=== PATIENT | female | born 1975 | race Caucasian/White ===

== ENCOUNTER → 2017-10-24 14:51 | Outpatient (CLI) | payer MEDICAID, SELFPAY ==
[2017-10-24 16:28] LABS: Estradiol 80.2 pg/mL
== END ==
PROVIDERS: Visit Provider Obstetrics & Gynecology
DX: N92.1 Excessive and frequent menstruation with irregular cycle (principal)
CPT/HCPCS: 36415; 82670

== ENCOUNTER → 2018-09-10 12:51 | Outpatient (CLI) | payer MEDICAID, SELFPAY ==
[2018-09-10 12:55] VITALS: BP 126/86; PULSE 134; RESP 16; TEMP 36.6; O2SAT 100
== END ==
PROVIDERS: Family Provider Family Medicine; PCP Family Medicine; Referring Provider Obstetrics & Gynecology; Visit Provider Obstetrics & Gynecology
DX: D50.0 Iron deficiency anemia secondary to blood loss (chronic) (principal); K90.9 Intestinal malabsorption, unspecified
CPT/HCPCS: 96365; 96366; J1756; J7050; A4216

== ENCOUNTER → 2018-09-24 | Outpatient (CLI) | payer MEDICAID, SELFPAY ==
[2018-09-24 13:43] VITALS: BP 116/75; PULSE 105; RESP 16; O2SAT 100
== END | disposition home or self-care (01) ==
LOC: MEDOUTP 13:30
PROVIDERS: Family Provider Family Medicine; PCP Family Medicine; Referring Provider Obstetrics & Gynecology; Visit Provider Obstetrics & Gynecology
DX: K90.9 Intestinal malabsorption, unspecified (principal); D50.9 Iron deficiency anemia, unspecified
CPT/HCPCS: 96365; 96366; 96374; J1756; J7050; A4216

== ENCOUNTER → 2018-10-16 14:05 | Outpatient (CLI) | payer MEDICAID, SELFPAY ==
[2018-10-16 16:15] LABS: Hematocrit 34.9 % (37-47); Hemoglobin 10.9 g/dL (12.0-15.0); Mean Corp Hgb Conc 31.2 g/dL (32-36); Mean Corpuscular Hgb 26.4 pg (27.0-32.0); Mean Corpuscular Volume 84.5 fL (81-99); Mean Platelet Vol. 9.2 fl (6.2-12.0); POSITIVE MORPHOLOGY YES; Platelet Count 223 K/mm3 (150-450); RBC Distribution Width CV 22.6 % (11.6-14.6); RBC Distribution Width SD 68.7 fl (35.1-43.9); Red Blood Count 4.13 M/mm3 (4.2-5.4); White Blood Count 4.7 K/mm3 (4.4-11.0)
[2018-10-16 16:23] LABS: Scan Indicated on CBC? Y/N YES- FLAGS NOTED
[2018-10-16 17:01] LABS: Differential Comment SCANNED
== END ==
PROVIDERS: Visit Provider Obstetrics & Gynecology
DX: D64.9 Anemia, unspecified (principal)
CPT/HCPCS: 36415; 85027

== ENCOUNTER → 2018-11-11 14:47 | Outpatient (CLI) | payer MEDICAID, SELFPAY ==
[2018-11-15 11:22] LABS: HPV HC, High Risk Negative (Negative)
== END ==
PROVIDERS: Visit Provider Obstetrics & Gynecology
DX: Z12.4 Encounter for screening for malignant neoplasm of cervix (principal)
CPT/HCPCS: 87624

== ENCOUNTER → 2019-01-16 14:02 | Outpatient (CLI) | payer MEDICAID, SELFPAY ==
[2019-01-16 14:25] VITALS: BP 114/78; PULSE 97; RESP 16; TEMP 36.6; BMI 21.2
[2019-01-16 15:39] VITALS: BP 117/75; PULSE 103; RESP 14
== END ==
PROVIDERS: Family Provider Family Medicine; PCP Family Medicine; Referring Provider Obstetrics & Gynecology; Visit Provider Obstetrics & Gynecology
DX: D50.9 Iron deficiency anemia, unspecified (principal); K90.9 Intestinal malabsorption, unspecified; N92.0 Excessive and frequent menstruation with regular cycle
CPT/HCPCS: 96365; J7050; A4216; Q0138

== ENCOUNTER → 2019-02-19 13:24 | Outpatient (CLI) | payer MEDICAID, SELFPAY ==
[2019-01-16 14:25] VITALS: BMI 21.2
[2019-02-19 14:10] VITALS: BP 125/75; PULSE 107; RESP 16; TEMP 36.6; O2SAT 98; BMI 21.2
[2019-02-19 15:23] VITALS: BP 125/71; PULSE 107; RESP 16; TEMP 36.7; O2SAT 98
== END ==
PROVIDERS: Family Provider Family Medicine; PCP Family Medicine; Referring Provider Obstetrics & Gynecology; Visit Provider Obstetrics & Gynecology
DX: D50.9 Iron deficiency anemia, unspecified (principal); N92.0 Excessive and frequent menstruation with regular cycle; K90.9 Intestinal malabsorption, unspecified
CPT/HCPCS: 96365; J7050; A4216; Q0138

== ENCOUNTER → 2019-03-31 14:00 | Outpatient (CLI) | payer MEDICAID, SELFPAY ==
[2019-02-19 14:10] VITALS: BMI 21.2
[2019-03-31 15:44] LABS: Hematocrit 41.3 % (37-47); Hemoglobin 13.8 g/dL (12.0-15.0); Mean Corp Hgb Conc 33.4 g/dL (32-36); Mean Corpuscular Hgb 31.4 pg (27.0-32.0); Mean Corpuscular Volume 93.9 fL (81-99); Mean Platelet Vol. 9.7 fl (6.2-12.0); Platelet Count 178 K/mm3 (150-450); RBC Distribution Width SD 48.2 fl (35.1-43.9); White Blood Count 4.4 K/mm3 (4.4-11.0)
== END ==
PROVIDERS: PCP Family Medicine; Referring Provider Obstetrics & Gynecology; Visit Provider Obstetrics & Gynecology
DX: D50.0 Iron deficiency anemia secondary to blood loss (chronic) (principal); N92.1 Excessive and frequent menstruation with irregular cycle; N39.0 Urinary tract infection, site not specified
CPT/HCPCS: 36415; 85027; 87086; 87088; 87186

== ENCOUNTER → 2020-03-01 10:19 | Outpatient (CLI) | payer MEDICAID, SELFPAY ==
--- NOTE | 2020-03-01 | EMB_PTH ---
PATIENT: OLYA OSORIO LOC: [facility] U#:[id number] AGE/SX: 49/F ROOM: RE03/01/[address]: Dr. Joceline Ramos MD : 1975 BED: DIS: SPEC #: [id number] RECD: 03/01/20 12:37 STATUS: MINDA REAlisa #: [id number] SILVIANO: 03/01/20 00:[address]: Joceline Estevez DEPT: SURGICAL PATHOLOGY RECD BY: Mitesh Whitehead ENTERED: 03/01/20 12:37 SP TYPE: ENDOM BX/C DINA DR: Dr. Penny Chong MD Tissues: Endometrium, NOS Procedures: Surgery Specimen Level IV HEADER OPERATION: Endometrial biopsy PRE-OP DIAGNOSIS: N92.0 TISSUE SUBMITTED: Endometrial biopsy MICROSCOPIC DIAGNOSIS Endometrium, biopsy: Simple cystic hyperplasia without atypia. AM:fiordaliza 03/02/2020 COMMENT Case has been reviewed in consultation with Dr. Gray who concurs with the above diagnosis. IDC:SJ MICROSCOPIC DESCRIPTION Slides are reviewed. GROSS DESCRIPTION Received in fixative is one container labeled with the patient's name and designated EM biopsy. The specimen consists of multiple fragments of hemorrhagic soft tissue that in aggregate measure 2 x 1.5 x 0.1 cm. The specimen is totally submitted in one cassette. / STANLEY:fiordaliza 03/01/20 TC:5 CPT: 45138
[2020-03-01 10:19] VITALS: BMI 21.2
[2020-03-01 10:42] LABS: Hematocrit 37.2 % (37-47); Hemoglobin 11.6 g/dL (12.0-15.0); Mean Corp Hgb Conc 31.2 g/dL (32-36); Mean Corpuscular Hgb 25.4 pg (27.0-32.0); Mean Corpuscular Volume 81.6 fL (81-99); Mean Platelet Vol. 8.5 fl (6.2-12.0); Platelet Count 275 K/mm3 (150-450); RBC Distribution Width CV 18.4 % (11.6-14.6); RBC Distribution Width SD 54.1 fl (35.1-43.9); Red Blood Count 4.56 M/mm3 (4.2-5.4); White Blood Count 4.5 K/mm3 (4.4-11.0)
[2020-03-01 11:28] LABS: Ferritin 21 ng/mL (8-252); Iron 67 ug/dL (50-170); Iron Binding Capacity,Total 572 ug/dL (250-450); PERCENT IRON SATURATION 11.7 % (15.0-55.0); T4 Free Direct 1.04 ng/dL (0.76-1.46); Thyroid Stim Hormone (TSH) 0.71 uIU/mL (0.358-3.74)
== END ==
PROVIDERS: PCP Family Medicine; Visit Provider Obstetrics & Gynecology
DX: N92.1 Excessive and frequent menstruation with irregular cycle (principal); E03.9 Hypothyroidism, unspecified
CPT/HCPCS: 36415; 82728; 83540; 83550; 84439; 84443; 84481; 85027; 88305

== ENCOUNTER → 2020-06-28 17:02 | Outpatient (CLI) | payer MEDICAID, SELFPAY ==
[2020-03-01 10:19] VITALS: BMI 21.2
--- NOTE | 2020-06-28 15:30 | EMB_PTH ---
PATIENT: OLYA OSORIO LOC: [facility] U#:[id number] AGE/SX: 49/F ROOM: RE06/28/[address]: Dr. Joceline Ramos MD : 1975 BED: DIS: SPEC #: [id number] RECD: 06/28/20 17:25 STATUS: MINDA LAMBERTO #: [id number] SILVIANO: 06/28/20 15:[address]: Joceline Estevez DEPT: SURGICAL PATHOLOGY RECD BY: Sil Dasilva ENTERED: 06/29/20 11:36 SP TYPE: ENDOM BX/C DINA DR: Dr. Penny Chong MD Tissues: Endometrium, NOS Procedures: Surgery Specimen Level IV HEADER OPERATION: Endometrial biopsy PRE-OP DIAGNOSIS: Endometrial hyperplasia with atypia; irregular bleeding TISSUE SUBMITTED: Endometrial biopsy MICROSCOPIC DIAGNOSIS Endometrial biopsy: Secretory endometrium. Negative for hyperplasia. See comment. STANLEY:fiordaliza 06/30/2020 COMMENT Clinical correlation and appropriate follow up are necessary. Please make reference to previous specimen ([id number]) endometrium, biopsy with diagnosis of ?simple cystic hyperplasia without atypia.? MICROSCOPIC DESCRIPTION Slides are reviewed. GROSS DESCRIPTION Received in fixative is one container labeled with the patient's name and designated EM biopsy. The specimen consists of multiple fragments of wu hemorrhagic soft tissue that in aggregate measure 2 x 0.5 x 0.1 cm. The specimen is totally submitted in one cassette. / SJ:rg 06/29/20 TC:4 CPT: 59611
== END ==
PROVIDERS: PCP Family Medicine; Visit Provider Obstetrics & Gynecology
DX: N92.6 Irregular menstruation, unspecified (principal)
CPT/HCPCS: 88305

== ENCOUNTER 2020-08-04 17:27 | Observation (INO) | payer MEDICAID, SELFPAY ==
[2020-03-01 10:19] VITALS: BMI 21.2
[2020-07-28 17:18] LABS: Hemoglobin 11.5 g/dL (12.0-15.0); Mean Corp Hgb Conc 31.1 g/dL (32-36); Mean Corpuscular Hgb 27.6 pg (27.0-32.0); Mean Corpuscular Volume 88.7 fL (81-99); Mean Platelet Vol. 9.6 fl (6.2-12.0); Platelet Count 215 K/mm3 (150-450); RBC Distribution Width CV 17.8 % (11.6-14.6); Red Blood Count 4.17 M/mm3 (4.2-5.4); White Blood Count 3.9 K/mm3 (4.4-11.0)
[2020-07-28 17:33] LABS: Partial Thromboplast Time 27.5 Seconds (24.1-36.2)
[2020-07-28 18:23] LABS: AST(SGOT) 15 U/L (15-37); Alanine Aminotransfer ALT/SGPT 19 U/L (13-56); Albumin, Serum 3.9 g/dL (3.2-5.0); Alkaline Phosphatase 50 U/L (45-117); Bilirubin, Direct 0.13 mg/dL (0.00-0.30); Globulin 3.2 g/dL (2.2-4.2); Magnesium 2.2 mg/dL (1.6-2.6); Protein, Total 7.1 g/dL (6.4-8.2); T4 Free Direct 0.84 ng/dL (0.76-1.46); Thyroid Stim Hormone (TSH) 0.76 uIU/mL (0.358-3.74)
[2020-08-04] VITALS (21 sets, daily range): BP systolic 90–133; BP diastolic 50–77; PULSE 71–168; RESP 14–18; TEMP 36.1–37.2; O2SAT 96–100; BMI 22.8; BMI 21.9
[2020-08-04] MEDS: Ondansetron 4 MG/2 ML Vial IV (07:00)
[2020-08-04] MEDS: Lactated Ringers 1,000 ML 40 ML IV ×4 (07:00→21:43)
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
[2020-08-04 09:20] LABS: Internal QC Validated? YES +Cl - CLEAR BKGD; Pregnancy, Urine Negative Negative
[2020-08-04] MEDS: Gabapentin 600 MG Tablet PO (09:45)
[2020-08-04] MEDS: Acetaminophen 500 MG Tablet 1000 MG PO ×3 (09:46→23:49)
--- NOTE | 2020-08-04 11:00 | HYST_PTH ---
PATIENT: OLYA OSORIO LOC: [facility] U#:[id number] AGE/SX: 45/F ROOM: SC313 RE08/04/[address]: Dr. Joceline Ramos MD : 1975 BED: 1 DIS: 08/05/2020 SPEC #: [id number] RECD: 08/05/20 08:05 STATUS: MINDA LAMBERTO #: [id number] SILVIANO: 08/04/20 11:[address]: Joceline Estevez DEPT: SURGICAL PATHOLOGY RECD BY: Sil Dasilva ENTERED: 08/05/20 08:25 SP TYPE: HYSTERECT OTHR DR: No Primary Care Phys Tissues: Uterus, NOS Procedures: Surgery Specimen Level V HEADER OPERATION: ERAS, hysterectomy, LAVH, salpingectomy PRE-OP DIAGNOSIS: Benign endometrial hyperplasia, excessive and frequent menstruation with irregular cycle and iron deficiency TISSUE SUBMITTED: Uterus, cervix and bilateral fallopian tubes MICROSCOPIC DIAGNOSIS Uterus, cervix and bilateral fallopian tubes, vaginal hysterectomy and bilateral salpingectomy: Cervix ? chronic cystic cervicitis and squamous metaplasia. Endometrium ? early secretory endometrium. Myometrium ? intramural and subserosal leiomyomas. - Focal adenomyosis. Bilateral fallopian tubes - no pathologic diagnosis. Right paratubal cyst. SJ:rg 08/08/2020 MICROSCOPIC DESCRIPTION Slides are reviewed. GROSS DESCRIPTION Received in fixative is one container labeled with the patient's name and designated uterus, cervix and bilateral fallopian tubes. The specimen consists of a hysterectomy specimen consisting of uterus with cervix and attached bilateral fallopian tubes. The uterus with cervix weighs 138 gm and measures 10 x 6 x 5 cm. The serosal surface is wu, glistening. A subserosal nodule is also noted at the level of internal os anteriorly. The ectocervical mucosa is unremarkable. The external os is circular in contour. The endocervical canal measures 3.5 cm in length and the endocervical mucosa is wu, glistening and unremarkable. The triangular endometrial cavity measures 4 cm in length and 2.5 cm in width. The endometrial cavity shows a well-positioned, wu-white intrauterine device. The vertical arm of the IUD measures 3 cm in length and the horizontal measures 3 cm in length. A two-prong suture is also noted attached to the IUD and measures 5 cm in length. The endometrium does not show any mass lesion and measures 0.2 cm in thickness. Sections of the uterine wall reveal two nodular masses, one intramural measuring 2 cm in greatest dimension and one subserosal at the level of internal os measuring 1.5 cm in greatest dimension. Sections of these masses reveal wu whorled cut surfaces without areas of hemorrhage, necrosis or cystic degeneration. The uterine wall measures up to 2.5 cm in thickness. The right fallopian tube measures 8 cm in length and 0.6 cm in diameter. The fimbrial end is identified. Sections reveal unremarkable cut surfaces. A paratubal cyst is noted measuring 2 cm in greatest dimension. It is filled with clear fluid. The left fallopian tube is similar to right and measures 7 cm in length and up to 0.9 cm in diameter. Paint Preparer sections are submitted in 11 cassettes as follows: 1?- anterior cervix, 2 - posterior cervix, 3-5 - anterior uterine wall, 6-8 - posterior uterine wall, 9 - nodular masses (almost the entire endometrium is submitted), 10 - right fallopian tube and paratubal cyst, 11??left fallopian tube. / SJ:fiordaliza 08/05/20 TC:1 CPT: 09982
[2020-08-04 12:01] LABS: Bedside Glucose 142 mg/dL (70-110)
[2020-08-04] MEDS: Cefazolin 2 GM in 0.9% Normal Saline 100 ML IV (12:24)
[2020-08-04] MEDS: Vasopressin 20 UNITS/ML Vial (12:47)
[2020-08-04] MEDS: Bupivacaine Mpf 0.5% 30 ML VIAL (15:18)
--- NOTE | 2020-08-04 16:01 | OP.PCM_ITS ---
Problems Associated Problem List Diagnoses (1) Endometrial hyperplasia without atypia: Report of Operation Date of Procedure: 08/04/20 Pre-Operative Diagnosis: 1. Endometrial hyperplasia 2. Menorrhagia 3. Iron deficiency Post-Operative Diagnosis: 1. Endometrial hyperplasia 2. Menorrhagia 3. Iron deficiency Surgery/Procedure Performed:: Laparoscopic assisted vaginal hysterectomy Description of Surgical Findings:: 10 to 12 weeks size uterus, normal-appearing tubes, ovaries normal-appearing with right hemorrhagic ovarian cyst, appendix normal Surgeon: Joceline Estevez neurosurgery research director: None (Palak Munson, Todd Kruse MD, Pamela Ibarra) Type of Anesthesia: General and Local Anesthesiologist: John Elizalde Specimen's removed: uterus, cervix, bilateral tubes Drains: UO 250 Estimated Blood Loss (mL): 650 Fluids Replaced: 1700 ml Description of Procedure: Indications: 45-year-old with history of menorrhagia and indwelling ParaGard IUD. She underwent endometrial biopsy demonstrating endometrial hyperplasia without atypia. She is counseled regarding medical versus surgical management options and opted to proceed with hysterectomy for definitive management. Procedural risks, benefits, indications were reviewed and patient desired to proceed. Procedure: The patient was brought to the operating room and sinus performed. She is placed in the dorsal supine position and induced under general anesthesia and intubated. Her arms were tucked at her sides. She is placed into dorsal lithotomy in the abdomen and perineum were prepped and draped in sterile fashion. She is placed into high lithotomy. A Jeffery catheter was placed into the bladder. A weighted speculum was placed vaginally and the cervix grasped at the anterior cervical lip using a single-tooth tenaculum. 20 cc of dilute vasopressin (20 units 100 mL normal saline ) was injected into the cervix. A ZGridCure uterine manipulator was placed and secured. The tenaculum was removed from the cervix and the speculum removed from the vagina. The patient was placed into low lithotomy and attention turned to the abdomen. Half percent bupivacaine was injected inferior to the umbilicus. Incision was made here with the scalpel and Veress needle introduced into the abdominal cavity with successful hanging drop test and no aspirate. The abdomen was i nsufflated to 15 mmHg. Veress needle was removed and a 5 mm port placed under laparoscopic guidance however the anterior abdominal peritoneum was not yet breached and insufflation of the subcutaneous tissue occurred. The 5 mm port was again introduced at the site and abdominal entry was confirmed using laparoscopy. A left lower quadrant tap block was placed under laparoscopic guidance using half percent bupivacaine. An incision was made at the site and a 5 mm port introduced. In similar fashion a right lower quadrant tap block was placed incision made and 5 mm port placed. Patient was placed into Trendelenburg. The abdomen and pelvis were inspected. Attention was turned to the left adnexa. The left distal tubal fimbria was identified. The left mesosalpinx was electrocoagulated and cut to the level of the uterine cornua to perform salpingectomy. The left round ligament was clamped, electrocoagulated and cut. The anterior broad ligament was opened with creation of bladder flap. The uterine ovarian ligament was clamped, electrocoagulated and cut. The posterior broad ligament was opened and uterine vessels were skeletonized. The ureter was visualized deep to the uterine vessels. The left uterine vessels were electrocoagulated and cut with good hemostasis. Attention was turned to the right adnexa and in similar fashion right salpingectomy was performed. The right round ligament was grasped, electrocoagulated and cut. An opening of the anterior broad ligament arteriolar bleeding was encountered and controlled using electrocoagulation. The bladder flap was completed. The right utero-ovarian ligament was clamped coagulated and transected. The posterior right broad ligament was incised and the uterine vessels were skeletonized. The right ureter was observed. The uterine vessels were electrocoagulated and cut. The abdomen was desufflated and attention was turned to the perineum. The patient was placed into high lithotomy and a weighted speculum is placed vaginally. A circumferential incision was made around the cervical vaginal junction. The posterior cul-de-sac was entered sharply and the [employer] Bard space speculum was placed within the posterior cul-de-sac. Anteriorly the vesicouterine membrane was dissected and a curved [place] was placed to retract the bladder. The right then left uterosacral ligaments were Francia clamped, cut and suture ligated. 0 Vicryl was used for all sutures during this procedure. The right cardinal ligament was Francia clamped, suture ligated and cut. The left cardinal ligament was Francia clamped, suture ligated and cut however there was arterial bleeding at the site with brisk bleeding. The source of bleeding was unable to be identified and the pedicle was widely clamped with improvement of bleeding, however suture ligation of the site did not resolve the bleeding. The remaining peritoneum at the right was grasped, cut and tied. The remaining left apical peritoneum was grasped, cut and tied with delivery of the uterus. Visualization improved and there appeared to be 2 vessels bleeding from the cardinal ligament pedicle at the right. A right angle clamp was placed proximal to the bleeds and the vessels were suture-ligated. Hemostasis was attained. A modified Hardy culdoplasty was performed incorporating the uterosacral ligament pedicles with with the anterior and posterior peritoneum. The vaginal cuff was reapproximated using serial [id number] sutures. The patient was placed into low lithotomy and attention turned to the abdomen. The abdomen was insufflated and the pelvis inspected laparoscopically. Shen was placed along the raw edge of peritoneum just lateral to the cuff. The procedure was complete. Abdomen was desufflated and trochars removed. The ELECTRICIAN FRONT closed the skin using 4-0 Monocryl under my supervision. Steri-Strips and OpSite dressings were placed over each of the sites. The Jeffery catheter was removed. Patient was placed into dorsal supine position, awakened, extubated and transferred to the recovery room without complication. Sponge and needle counts were correct x2. Admit VTE Documentation VTE Present on Admission: No VTE Mechan Device Prophylaxis: SCD's VTE Pharm Prophylaxis ordered?: No
[2020-08-04] MEDS: HYDROmorphone 0.5 MG/0.5 ML SYRINGE IV (20:05)
[2020-08-04] MEDS: Docusate Sodium 100 MG Capsule PO (20:05)
[2020-08-04] MEDS: Ondansetron ODT 4 MG Tablet PO (21:58)
[2020-08-04] MEDS: 0.9% Saline Lock 10 ML Syringe IV (22:37)
--- NOTE | 2020-08-04 22:38 | PN_ITS ---
Progress Note 45-year-old status post LAVH with postop tachycardia concerning for anemia now status post 1 unit packed RBCs. Recent vitals and orthostatic vitals reviewed. Patient orthostatic by pulse. On evaluation patient reports she feels well overall. She is sore however pain controlled with pain medication. She did have nausea without emesis, symptoms resolved with antiemetic. She voided x1 however missed the hat, thus volume unknown. She denies chest pain, shortness of breath, palpitations. She notes feeling woozy on standing during vitals f or a short moment then it resolved. She is well-appearing on exam. Regular rhythm with tachycardia to 104 beats per minute on my auscultation. Lungs are clear to auscultation bilaterally. Abdomen is soft, nontender and nondistended and laparoscopic bandage sites are not saturated. Minimal blood on pad. Will administer 500 cc bolus of LR. Will obtain EKG if no improvement after bolus. Consider CT chest/abdomen/pelvis if no significant improvement of postop tachycardia.
[2020-08-04] MEDS: Lactated Ringers 500 ML 999 ML IV (22:46)
[2020-08-04] MEDS: Heparin Injection (Vial) 5,000 UNIT/ML VIAL 5000 UNIT SC (23:20)
[2020-08-05 03:34] VITALS: BP 94/48; PULSE 100; RESP 16; TEMP 36.9; O2SAT 96
[2020-08-05] MEDS: traMADol 50 MG Tablet 100 MG PO ×2 (04:26→12:03)
[2020-08-05 04:42] LABS: Hematocrit 26.8 % (37-47); Hemoglobin 8.6 g/dL (12.0-15.0); Mean Corp Hgb Conc 32.1 g/dL (32-36); Mean Corpuscular Hgb 28.5 pg (27.0-32.0); Mean Corpuscular Volume 88.7 fL (81-99); Mean Platelet Vol. 9.3 fl (6.2-12.0); Platelet Count 256 K/mm3 (150-450); RBC Distribution Width CV 16.3 % (11.6-14.6); RBC Distribution Width SD 52.9 fl (35.1-43.9); Red Blood Count 3.02 M/mm3 (4.2-5.4); White Blood Count 7.7 K/mm3 (4.4-11.0)
[2020-08-05] MEDS: Acetaminophen 500 MG Tablet 1000 MG PO ×2 (05:56→12:06)
[2020-08-05 07:03] VITALS: BP 97/54; PULSE 89; RESP 16; TEMP 36.9; O2SAT 99
[2020-08-05 07:20] VITALS: O2SAT 95
[2020-08-05 08:20] VITALS: BP 94/57; PULSE 95; RESP 16; TEMP 36.8; O2SAT 99
[2020-08-05] MEDS: Ketorolac 30 MG/ML Syringe IV (08:33)
[2020-08-05] MEDS: Docusate Sodium 100 MG Capsule PO (08:34)
--- NOTE | 2020-08-05 08:46 | PCM.PN.OB ---
Subjective Subjective Patient doing well. She is sore, pain manageable with medication and heating pack. OOB, denies lightheadedness, dizziness while ambulating. She is voiding without difficulty with clear urine. Denies vaginal bleeding. Tolerates PO. Objective Data Objective Data Vital Signs: Vital Signs Temp Pulse Resp BP Pulse Ox 98.4 F 89 16 97/54 L 95 08/05/20 07:03 08/05/20 07:03 08/05/20 07:03 08/05/20 07:03 08/05/20 07:20 Oxygen Flow Rate (L/min) 6 Oxygen Delivery Method Room Air Weight: 58.2 kg Body Mass Index (BMI) 21.9 Orthostatic Vital Signs Start: 08/04/20 21:47 Freq: q24h Status: Active Protocol: Activity Type Activity Date Activity User E-Sign Co-Sign Detail Recorded Client Recorded Date Recorded By Document 08/04/20 21:47 OSCAR [id number] 08/04/20 21:53 OSCAR 08/04/20 21:47 Orthostatic Vitals Standing -Blood Pressure (90/60-120/80) 106/71 -Extremity Use Left Arm -Pulse Rate (60-100) 168 H Sitting -Blood Pressure (90/60-120/80) 110/77 -Extremity Use Left Arm -Pulse Rate (60-100) 140 H Lying -Blood Pressure (90/60-120/80) 98/64 -Extremity Use Left Arm -Pulse Rate (60-100) 111 H Intake & Output: Intake and Output for Last 24 Hours 08/03/20 08/04/20 08/05/20 23:59 23:59 23:59 Intake Total 3760.17 / 3760.17 800 / 800 Output Total 300 / 300 175 / 175 Balance 3460.17 / 3460.17 625 / 625 Lab / Micro Data Result Diagrams: 08/05/20 04:28 Labs: Laboratory Results - last 24 hr 07/28/20 07/28/20 07/28/20 16:02 16:02 16:02 WBC 3.9 L RBC 4.17 L Hgb 11.5 L Hct 37.0 MCV 88.7 MCH 27.6 MCHC 31.1 L RDW Std Deviation 58.0 H RDW Coeff of Carlos 17.8 H Plt Count 215 MPV 9.6 PT 13.0 INR 1.0 APTT 27.5 Magnesium 2.2 Total Bilirubin 0.30 Direct Bilirubin 0.13 AST 15 ALT 19 Alkaline Phosphatase 50 Total Protein 7.1 Albumin 3.9 Globulin 3.2 TSH 0.76 Free T4 0.84 Urine Test POC Glucose Blood Type Antibody Screen Crossmatch 07/28/20 08/04/20 08/04/20 16:02 09:00 09:26 WBC RBC Hgb Hct MCV MCH MCHC RDW Std Deviation RDW Coeff of Carlos Plt Count MPV PT INR APTT Magnesium Total Bilirubin Direct Bilirubin AST ALT Alkaline Phosphatase Total Protein Albumin Globulin TSH Free T4 Urine Test Negative POC Glucose 142 H Blood Type A POSITIVE Antibody Screen NEGATIVE Crossmatch See Detail 08/05/20 04:28 WBC 7.7 RBC 3.02 L Hgb 8.6 L Hct 26.8 L MCV 88.7 MCH 28.5 MCHC 32.1 RDW Std Deviation 52.9 H RDW Coeff of Carlos 16.3 H Plt Count 256 MPV 9.3 PT INR APTT Magnesium Total Bilirubin Direct Bilirubin AST ALT Alkaline Phosphatase Total Protein Albumin Globulin TSH Free T4 Urine Test POC Glucose Blood Type Antibody Screen Crossmatch Micro: Microbiology 08/03/20 13:43 Interface Orders SARS-CoV-2 Antigen (Rapid) - Final Physical Exam Const alert, oriented x3 and no apparent distress Resp normal respiratory effort, normal air movement and clear to auscultation bilaterally Cardio regular rate, regular rhythm, S1 normal heart sound and S2 normal heart sound GI normal to inspection, nondistended, normoactive bowel sounds, soft to palpation, non-tender and non-distended GI Narrative: incisional dressings c/d/i, incisional sites nontender Extremity no calf tenderness Assessment & Plan (1) Acute blood loss anemia: PLAN: s/p 1u prbc Pt no longer symptomatic Fe supplementation (2) H/O: hysterectomy: PLAN: Routine postop care Plan for dc home later today (3) Endometrial hyperplasia without atypia:
--- NOTE | 2020-08-05 08:50 | PCM.DC.SUM ---
Providers Date of Admission: 08/04/20 Primary Care Physician: Taylor Primary Care Phys Reason For Visit: LAVH, BILATERAL SALPING Diagnosis Discharge Diagnosis (1) Acute blood loss anemia: Status: Acute Code(s): D62 - Acute posthemorrhagic anemia (2) H/O: hysterectomy: Status: Acute Code(s): Z90.710 - Acquired absence of both cervix and uterus (3) Endometrial hyperplasia without atypia: Status: Acute Code(s): N85.00 - Endometrial hyperplasia, unspecified Medications at Discharge Home Medications Flintstones Gummies 1 tab PO DAILY 07/28/20 valacyclovir [Valtrex] 500 mg PO DAILY PRN 07/28/20 omeprazole 20 mg PO DAILY PRN 08/04/20 tramadol 50 mg PO Q4H PRN 7 Days #30 tab MDD 6 tabs 08/04/20 ferrous sulfate [Iron (ferrous sulfate)] 325 mg PO BID #60 tab NS 08/05/20 ibuprofen 600 mg PO Q6H PRN #0 tab 08/05/20 Hospital Course Operations hysterectomy Summary of Care Provided Hospital Course: 45-year-old para 2 admitted for scheduled LAVH, bilateral salpingectomy. She underwent an LAVH, bilateral salpingectomy complicated by acute blood loss anemia. She had postop tachycardia despite fluid bolus and received 1 unit of packed RBC with improvement of symptoms. She was discharged to home on postop day #1. Weight / BMI Weight Weight: 58.2 kg Body Mass Index (BMI) 21.9 ABG / Lab / Microbiology Data Result Diagrams: 08/05/20 04:28 Laboratory: Laboratory Results - last 24 hr 07/28/20 07/28/20 07/28/20 16:02 16:02 16:02 WBC 3.9 L RBC 4.17 L Hgb 11.5 L Hct 37.0 MCV 88.7 MCH 27.6 MCHC 31.1 L RDW Std Deviation 58.0 H RDW Coeff of Carlos 17.8 H Plt Count 215 MPV 9.6 PT 13.0 INR 1.0 APTT 27.5 Magnesium 2.2 Total Bilirubin 0.30 Direct Bilirubin 0.13 AST 15 ALT 19 Alkaline Phosphatase 50 Total Protein 7.1 Albumin 3.9 Globulin 3.2 TSH 0.76 Free T4 0.84 Urine Test POC Glucose Blood Type Antibody Screen Crossmatch 07/28/20 08/04/20 08/04/20 16:02 09:00 09:26 WBC RBC Hgb Hct MCV MCH MCHC RDW Std Deviation RDW Coeff of Carlos Plt Count MPV PT INR APTT Magnesium Total Bilirubin Direct Bilirubin AST ALT Alkaline Phosphatase Total Protein Albumin Globulin TSH Free T4 Urine Test Negative POC Glucose 142 H Blood Type A POSITIVE Antibody Screen NEGATIVE Crossmatch See Detail 08/05/20 04:28 WBC 7.7 RBC 3.02 L Hgb 8.6 L Hct 26.8 L MCV 88.7 MCH 28.5 MCHC 32.1 RDW Std Deviation 52.9 H RDW Coeff of Carlos 16.3 H Plt Count 256 MPV 9.3 PT INR APTT Magnesium Total Bilirubin Direct Bilirubin AST ALT Alkaline Phosphatase Total Protein Albumin Globulin TSH Free T4 Urine Test POC Glucose Blood Type Antibody Screen Crossmatch Microbiology: Microbiology 08/03/20 13:43 Interface Orders SARS-CoV-2 Antigen (Rapid) - Final D/C Instructions Discharge Diet: No restrictions Discharge Activity: Return to Normal Activity May resume sexual activity in: 6 weeks Call your doctor if your incision/area has: Continuous Slow Oozing, Sudden Increased Bleeding, Increased Pain/ Swelling, Increased Redness, Foul Smelling Discharge and Swelling at the incision site Call your doctor if you observe: Fever of 101 or Higher, Inability to urinate, Inability to have a bowel movement, Shortness of breath, Chest pain, Calf discomfort and Uncontrolled pain Remove Dressing in: 2 days Cleanse incision/area with: Soap & Water Please Follow Up With: Joceline Estevez MD When: 08/12/20 at 9:45 am Meaningful Use Info Meaningful Use Diagnoses (Choose all that apply): None applicable Discharge Plan Admission Admit Date/Time: 08/04/20 17:27 Primary Reason for Your Visit: Hysterectomy Attending Provider: Joceline Estevez Primary Care Provider: Care Physician,No Primary Instructions Patient Instructions: Anemia Discharge Orders/Prescriptions Prescriptions: New ferrous sulfate [Iron (ferrous sulfate)] 325 mg (65 mg iron) tablet 325 mg PO BID Qty: 60 RF: 0 Continued valacyclovir [Valtrex] 500 mg Tablet 500 mg PO DAILY PRN (Reason: HERPES) RF: 0 Flintstones Gummies Tablet,Chewable 1 tab PO DAILY RF: 0 tramadol 50 mg Tablet 50 mg PO Q4H MDD 6 tabs PRN (Reason: Pain) 7 Days Qty: 30 RF: 0 omeprazole 20 mg capsule,delayed release(DR/EC) 20 mg PO DAILY PRN (Reason: Heartburn) RF: 0 ibuprofen 600 mg Tablet 600 mg PO Q6H PRN (Reason: Pain) Qty: 0 RF: 0 Referrals / Follow Up: Joceline Estevez MD [STAFF PHYSICIAN] - Care Physician,No Primary [Primary Care Provider] - Disposition Disposition (needs filled in before D/C Order can be placed): Home, self care
[2020-08-05 12:00] VITALS: BP 96/59; PULSE 76; RESP 14; TEMP 36.6; O2SAT 100
== END 2020-08-05 13:08 | disposition home or self-care (01) ==
LOC: MS3 17:48
PROVIDERS: Anesthesiology; Admitting Provider Obstetrics & Gynecology; Referring Provider Obstetrics & Gynecology; Visit Provider Obstetrics & Gynecology
PROC: 0UT9FZZ Resection of Uterus, Via Natural or Artificial Opening With Percutaneous Endoscopic Assistance (ICD-10-PCS; CPT 58550; principal; 2020-08-04 10:35)
DX: D25.2 Subserosal leiomyoma of uterus (principal); D25.1 Intramural leiomyoma of uterus; N85.01 Benign endometrial hyperplasia; B00.9 Herpesviral infection, unspecified; F10.21 Alcohol dependence, in remission; N92.1 Excessive and frequent menstruation with irregular cycle; N83.201 Unspecified ovarian cyst, right side; D62 Acute posthemorrhagic anemia; E61.1 Iron deficiency; K21.9 Gastro-esophageal reflux disease without esophagitis; Z79.899 Other long term (current) drug therapy
CPT/HCPCS: 00940; 58550; 36415; 36430; 80076; 81025; 82962; 83735; 84439; 84443; 85027; 85610; 85730; 86850; 86900; 86901; 86920; 87426; 88307; 96361; 96372; 96374; 96375; 99218; 99251; C9803; J7040; J7120; P9016; A4216; C1760; G0378; G0379; G0463; J2405; J3475